=== PATIENT | male | born 1975 | race Caucasian/White ===

== ENCOUNTER 2017-09-11 07:38 | Emergency (ER) | payer OTHER ==
[2017-09-11 07:47] VITALS: RESP 18
[2017-09-11] MEDS ORDERED: LIDOCAINE HCL 4% TOPICAL SOLN 50ML TP ONE (07:47)
--- NOTE | 2017-09-11 08:07 | EDPHY ---
H & P Time Seen by Provider: 09/11/17 07:46 HPI/ROS: This patient presents with a 2 hr history of epistaxis from the left knee area occurred spontaneously this morning at home prior to arrival. He reports no recent nose symptoms except for occasional sneezing. He has had brief epistaxis in the past typically resolves with pinching his nose. However today he tried pinching the nose and stuffing tissue up the left Suha with still ongoing bleeding that prompted his visit by private vehicle for evaluation. ROS: Constitutional: No fevers or fatigue. Hematologic: No recent bruising or hematuria. HEENT: No recent nasal trauma. No recent URIs. Cardiovascular: No lightheadedness or heart palpitations Integumentary: No pallor 5 point ROS is otherwise negative Past Medical/Surgical History: Hypertension. Otherwise healthy Smoking Status: Never smoked Physical Exam: Physical Exam Vital signs are normal. General: No acute distress HEENT: Nose: Mild epistaxis from the left naris. No bleeding from right knee area. Ears: External canals and tympanic membranes are clear with no erythema or abnormal findings bilaterally. Oropharynx: No erythema or exudates. No dysphonia. No drooling or stridor. No blood in the posterior pharynx. Eyes: Pupils equal and react to light. Extraocular motions are intact. Neck: Supple with no meningismus. No lymphadenopathy Lungs: Clear to auscultation bilaterally with no rales, rhonchi or wheeze. No respiratory distress. Cardiac: Regular rate and rhythm with no murmur gallop or rub Skin: No rash or pallor. Neuro: Alert with no focal deficits noted. Initial differential diagnosis: Anterior epistaxis, posterior epistaxis Constitutional: Initial Vital Signs Temperature (C) 36.4 C 09/11/17 07:44 Heart Rate 71 09/11/17 07:44 Respiratory Rate 18 09/11/17 07:44 Blood Pressure 159/110 H 09/11/17 07:44 O2 Sat (%) 95 09/11/17 07:44 O2 Delivery Mode Room Air Allergies/Adverse Reactions: diazepam [From Valium] Allergy (Verified 09/11/17 07:43) Home Medications: Medication Instructions Recorded Losartan/Hctz 50/12.5 09/11/17 MDM/Departure - MDM Procedures: Procedure: Epistaxis control. After verbal consent was obtained, the patient was anesthetized with a 50-50 mix of 4% lidocaine with 1-1000 concentration epinephrine. I sprayed this the patient's nares using 10 mL transient 20-gauge Angiocath 2 mL in each nares. This was followed by soaking cotton ball on the same medication and placed in the right nares for 15 minutes. The anterior epistaxis was identified. The patient was treated with silver nitrate with hemostasis. Following the procedure the patient was re-examined and the bleeding was well controlled. The patient tolerated the procedure well. The procedure was performed by myself. There were no complications. Medications Given: Discontinued Medications Epinephrine (Adrenalin Chloride) 1,000 mg NASAL EDNOW ONE Stop: 09/11/17 07:47 Last Admin: 09/11/17 08:30 Dose: 1 cas Lidocaine HCl (Lidocaine Hcl 4% Topical Solution) 100 ml TP EDNOW ONE Stop: 09/11/17 07:48 Last Admin: 09/11/17 08:29 Dose: 1 btl - Depart Disposition: Home, Routine, Self-Care Clinical Impression: Anterior epistaxis Condition: Good Instructions: Nosebleed (ED) Additional Instructions: Diagnosis: Anterior epistaxis Plan: Humidifier Avoid blowing your nose for the next few days. Avoid using aspirin for the next week. Afrin nasal spray if you have recurrent bleed, lean forward pinch the upper bridge of her nose firmly for 20 min. If bleeding persists beyond this then return for re-evaluation. Referrals: Alonzo Dupree MD [Primary Care Provider] - As per Instructions
[2017-09-11] MEDS ORDERED: SILVER NITRATE APPLICATOR 1 APPL TP ONE (08:28)
[2017-09-11 09:36] VITALS: BP 144/76; PULSE 77; TEMP 98; O2SAT 97
== END 2017-09-11 09:11 | disposition home or self-care (01) ==
LOC: CED 07:38
PROC: 095KXZZ Destruction of Nasal Mucosa and Soft Tissue, External Approach (ICD-10-PCS; principal; 2017-09-11)
DX: R04.0 Epistaxis (principal)